=== PATIENT | female | born 2005 | race Caucasian/White ===

== ENCOUNTER 2024-07-30 23:52 | Emergency (ER) | payer OTHER ==
[2024-07-31] MEDS ORDERED: MORPHINE 4 MG/ML SYR ONE (00:33)
[2024-07-31] MEDS ORDERED: METHYLPREDNISOLONE 125 MG INJ ONE (00:33)
[2024-07-31] MEDS ORDERED: ONDANSETRON 4 MG/2 ML VIAL ONE (00:33)
[2024-07-31] MEDS ORDERED: KETOROLAC 30 MG/ML INJ ONE (00:33)
[2024-07-31] MEDS ORDERED: NA CHLORIDE 0.9% 1,000 ML ONE (00:34)
[2024-07-31 01:00] LABS: Absolute Eosinophils 0.1 K/uL (0-0.5); Absolute Lymphocytes (CBC) 2.6 K/uL (0.7-4.9); Absolute Monocytes 0.6 K/uL (0.1-1.3); Absolute Neutrophil 5.8 K/uL (1.8-8.0); Basophils % 0.4 % (0-1.3); Eosinophils % 1.1 % (0-4.4); Hematocrit 39.6 % (36.0-45.0); Hemoglobin 13.1 g/dL (12.0-15.0); Lymphocytes % 28.4 % (15.3-44.8); MCH 29.2 pg (27.0-35.0); MCHC 33.2 g/dL (32.0-36.0); MPV 8.3 fL (7.6-11.3); Monocytes % 6.4 % (3.3-12.3); Neutrophils % 63.7 % (41.7-73.7); Platelets 288 thou/uL (152-406); RBC Red Blood Cell Count 4.51 M/uL (3.86-4.86); Red Cell Distribution Width 13.9 % (12.1-15.2)
[2024-07-31 01:13] LABS: ALT/SGPT 17 U/L (13-56); AST/SGOT 11 U/L (15-37); Albumin 3.7 g/dL (3.4-5.0); Alkaline Phosphatase 71 U/L (45-117); Anion Gap 9.1 mEq/L (5.0-15.0); BUN Blood Urea Nitrogen 13 mg/dL (7-18); Bicarbonate 24 mEq/L (21-32); Globulin 3.6 g/dL (2.3-3.5); Glomerular Filtration Rate 108 ml/min (=/>90); Glucose Level 126 mg/dL (74-106); Magnesium 2.2 mg/dL (1.6-2.4); NT PRO-BNP 16 pg/mL (<125); Potassium 3.1 mEq/L (3.5-5.1); Protein, Total 7.3 g/dL (6.4-8.2); Sodium Level 139 mEq/L (136-145)
[2024-07-31 01:29] LABS: Bilirubin Direct < 0.2 mg/dL (0-0.2); Bilirubin Total < 0.2 mg/dL (0.2-1.0); Troponin High Sensitivity < 3.0 pg/mL (<58.9)
[2024-07-31 02:15] LABS: Specific Gravity 1.018 (1.005-1.030)
[2024-07-31 02:32] LABS: HCG, Quantitative < 1 mIU/mL (1-3)
--- NOTE | 2024-07-31 04:29 | RAD REPORT ---
CLINICAL HISTORY: Chest pain after a cough. COMPARISON: XR Chest 07/31/2024. TECHNIQUE: CT CHEST ABDOMEN PELVIS WITH IV CONTRAST on 07/31/2024 12:16 AM ACADEMIC AFFAIRS VICE PRESIDENT. MIPS reconstructions we re generated. This exam was performed according to our departmental dose-optimization program, which includes autom ated exposure control, adjustment of the mA and/or kV according to patient size and/or use of iterative reconstruction technique. FINDINGS: Vascular: Thoracic aorta is normal in course and caliber without aneurysm or dissection. Pulmonary ar teries are adequately opacified without acute or chronic filling defects. Abdominal aorta is normal in course and caliber without aneurysm. Pelvic arteries are patent without aneurysm or occlusion. Chest: The heart is normal in size. There is no pericardial effusion. Intrathoracic lymph nodes are n ot enlarged. There is no pleural effusion, pleural thickening or pneumothorax. Central airways are patent. Lungs a re clear with no consolidation, mass or interstitial lung disease. Abdomen: The liver is normal in appearance. There is no biliary dilatation. Gallbladder is decompress ed. The pancreas and spleen are normal in appearance. The adrenal glands and kidneys are unremarkable. There is no free air. There is no retroperitoneal adenopathy. Pelvis: There is no bowel obstruction. Urinary bladder is unremarkable. There is no free fluid. Uteru s is normal in size. Appendix is normal. Skeleton: There are no acute osseous findings. No suspicious bony lesions. IMPRESSION: No aortic dissection or aneurysm. No pulmonary embolus. No pneumonia. No acute inflammatory process in the abdomen or pelvis. Electronically signed by: Kranthi Barclay MD 07/31/2024 04:25 AM ACADEMIC AFFAIRS VICE PRESIDENT RP Due to temporary technical issues with the PACS/[employer] reporting system, reports are being wilfredo d by the in-house radiologist without review as a courtesy to ensure prompt reporting the interpreting radiologist is fully responsible for the content of the report. Transcribed Date/Time: 07/31/2024 4:28 AM
--- NOTE | 2024-07-31 04:43 | ER ---
Nurse's Notes [facility] Name: Melinda Murrell Age: 18 yrs Sex: Female : 2005 Arrival Date: 07/30/2024 Time: 23:52 Bed 7 Private MD: Diagnosis: Cough;Acute bronchitis, unspecified;Pleuritic chest pain, Mild persistent asthma with acute exacerbation. Presentation: 07/31 00:06 Chief complaint: Patient states: PT STATES SHE HAD A COUGHING SPELL APPROX 1 HR AGO AND br2 FELT A "POP" TO RIGHT CHEST WALL. C/O PAIN TO THAT AREA 12/06. Coronavirus screen: Client denies travel out of the [place] in the last 14 days. Ebola Screen: Patient denies exposure to infectious person. Patient denies travel to an Ebola-affected area in the 21 days before illness onset. Initial Sepsis Screen: Does the patient meet any 2 criteria? No. Patient's initial sepsis screen is negative. Does the patient have a suspected source of infection? No. Patient's initial sepsis screen is negative. Risk Assessment: Do you want to hurt yourself or someone else? Patient reports no desire to harm self or others. Onset of symptoms was July 30, 2024 at 23:00. 00:06 Method Of Arrival: Ambulatory br2 00:06 Acuity: TYLER 3 br2 Historical: - Allergies: 00:08 PENICILLINS; br2 - PMHx: 00:08 Asthma; br2 - Immunization history:: Adult Immunizations up to date. - Infectious Disease History:: Denies. - Social history:: Smoking status: Patient/guardian denies using tobacco, Patient uses alcohol, occasionally. - Family history:: not pertinent. Screenin:20 [facility] ED Fall Risk Assessment (Adult) History of falling in the last 3 months, al5 including since admission No falls in past 3 months (0 pts) Confusion or Disorientation No (0 pts) Intoxicated or Sedated No (0 pts) Impaired Gait No (0 pts) Mobility Assist Device Used No (0 pt) Altered Elimination No (0 pt) Score/Fall Risk Level 0 - 2 = Low Risk Oriented to surroundings, Maintained a safe environment, Hourly rounding (assess needs \\T\\ fall precautionary measures) done. Abuse screen: Denies threats or abuse. Denies injuries from another. Nutritional screening: No deficits noted. Tuberculosis screening: No symptoms or risk factors identified. Assessment: 00:20 General: Appears in no apparent distress. comfortable, Behavior is calm, cooperative. al5 Pain: Complains of pain in right seventh rib, right eighth rib, right ninth rib and right tenth rib Pain does not radiate. Pain began 1 hour ago. Neuro: Level of Consciousness is awake, alert, obeys commands, Oriented to person, place, time, situation. Cardiovascular: Capillary refill < 3 seconds Patient's skin is warm and dry. Respiratory: Airway is patent Respiratory effort is even, unlabored, Respiratory pattern is regular, symmetrical. GI: No signs and/or symptoms were reported involving the gastrointestinal system. : No signs and/or symptoms were reported regarding the genitourinary system. EENT: No signs and/or symptoms were reported regarding the EENT system. Derm: Skin is intact, is healthy with good turgor, Skin is pink, warm \\T\\ dry. normal. Musculoskeletal: No signs and/or symptoms reported regarding the musculoskeletal system. 02:54 Reassessment: Patient and/or family updated on plan of care and expected duration. Pain br2 level reassessed. Patient is alert, oriented x 3, equal unlabored respirations, skin warm/dry/pink. Patient states feeling better. Patient states symptoms have improved. Vital Signs: 00:00 BP 112 / 101; Pulse 113; Resp 19; Pulse Ox 99% on R/A; al5 00:06 BP 130 / 88; Pulse 102; Resp 18 S; Temp 97.5; Pulse Ox 100% on R/A; Weight 81.65 kg; br2 Height 5 ft. 7 in. ; Pain 5/10; 00:23 BP 115 / 74; Pulse 111; Resp 18; Pulse Ox 98% on R/A; al5 00:30 BP 111 / 79; Pulse 106; Resp 18; Pulse Ox 99% on R/A; al5 00:45 BP 112 / 78; Pulse 96; Resp 18; Pulse Ox 97% on R/A; al5 01:00 BP 107 / 80; Pulse 90; Resp 17; Pulse Ox 98% on R/A; al5 01:15 BP 111 / 70; Pulse 90; Resp 16; Pulse Ox 98% on R/A; al5 02:20 BP 120 / 77; Pulse 97; Resp 20; Pulse Ox 99% ; jj7 02:53 BP 106 / 75; Pulse 79; Resp 18; Pulse Ox 99% ; Pain 3/10; br2 04:00 BP 108 / 70; Pulse 92; Resp 20; Pulse Ox 98% ; jj7 05:02 BP 127 / 82; Pulse 80; Resp 18 S; Pulse Ox 99% on R/A; br2 00:06 Body Mass Index 28.19 (81.65 kg, 170.18 cm) br2 00:06 Pain Scale: Adult br2 02:53 Pain Scale: Adult br2 [place] Coma Score: 03:49 Eye Response: spontaneous(4). Motor Response: obeys commands(6). Verbal Response: sp4 oriented(5). Total: 15. ED Course: 07/30 23:56 Patient arrived in ED. jj6 23:57 Andres Victor MD is Attending Physician. sp4 23:59 Jamilah Jolly RN is Primary Nurse. al5 07/31 00:08 Triage completed. br2 00:20 Patient has correct armband on for positive identification. Bed in low position. Call al5 light in reach. Side rails up X 1. Provided Education on: plan of care. Client placed on continuous cardiac and pulse oximetry monitoring. NIBP monitoring applied. 00:30 No provider procedures requiring assistance completed. Inserted saline lock: 22 gauge al5 in right forearm, using aseptic technique. Blood collected. Flushed with 10 mL NS. Patient maintains SpO2 saturation greater than 95% on room air. 00:35 EKG done, by ED staff, reviewed by Andres Victor MD. sa1 00:47 XRAY Chest (1 view) In Process Unspecified. EDMS 02:43 CT Chest, Abdomen, Pelvis - W/Contrast In Process Unspecified. EDMS 05:03 IV discontinued, intact, bleeding controlled, No redness/swelling at site. Pressure br2 dressing applied. Administered Medications: 00:46 Drug: MethylPrednisoLONE IVP 125 mg IVP once Route: IVP; Site: right antecubital; al5 02:00 Follow up: Response: No adverse reaction br2 00:47 Not Given (Patient Refused): morphineor iv 4 mg IVP once over 4 mins al5 00:47 Not Given (Patient Refused): [id number] mg IVP once al5 00:47 Not Given (Patient Refused): ondansetron 4 mg IVP once; over 2 minutes al5 00:47 Drug: NS 0.9% IV 1000 ml IV at 1 bolus Per protocol; to be given as a bolus over 60 al5 minutes Route: IV; Rate: 1 bolus; Site: right antecubital; 02:00 Follow up: Response: No adverse reaction; IV Status: Completed infusion; IV Intake: br2 1000ml Medication: 00:20 VIS not applicable for this client. al5 Intake: 02:00 IV: 1000ml; Total: 1000ml. br2 Outcome: 04:42 Discharge ordered by . sp4 05:02 Discharged to home ambulatory, br2 05:02 Condition: good 05:02 Discharge instructions given to patient, Instructed on discharge instructions, follow up and referral plans. Demonstrated understanding of instructions, follow-up care, medications, Prescriptions given X 4, 05:05 Patient left the ED. br2 Signatures: Dispatcher [employer] EDMS Siri Liu jj6 Patricia Augustine, RN RN jj7 Andres Victor MD MD sp4 Jamilah Jolly RN RN al5 Sultan annita Packer1 Marline Prasad, RN RN br2 Corrections: (The following items were deleted from the chart) 01:44 00:15 Reassessment: REPORT GIVEN TO SHERIE RN AT jj7 al5
--- NOTE | 2024-07-31 04:43 | EDPHYS ---
Physician Documentation [facility] Name: Melinda Murrell Age: 18 yrs Sex: Female : 2005 Arrival Date: 07/30/2024 Time: 23:52 Bed 7 Private MD: ED Physician Andres Victor HPI: 07/30 23:57 This 18 yrs old Female presents to ER via Unassigned with complaints of Chest sp4 Pain, Asthma Exacerbation. 07/31 03:49 18-year-old female with history of pneumomediastinum at the age of 2 presents with sp4 acute forceful cough associated with epigastric right lower chest pain as well. History of asthma.. Historical: - Allergies: 00:08 PENICILLINS; br2 - PMHx: 00:08 Asthma; br2 - Immunization history:: Adult Immunizations up to date. - Infectious Disease History:: Denies. - Social history:: Smoking status: Patient/guardian denies using tobacco, Patient uses alcohol, occasionally. - Family history:: not pertinent. ROS: 03:49 Constitutional: Negative for fever, chills, and weight loss, positive chest pain and sp4 epigastric pain 03:49 All other systems are negative, Exam: 03:49 Constitutional: This is a well developed, well nourished patient who is awake, alert, sp4 and in no acute distress. Head/Face: Normocephalic, atraumatic. Eyes: Pupils equal round and reactive to light, extra-ocular motions intact. Lids and lashes normal. Conjunctiva and sclera are not injected. Cornea within normal limits. Periorbital areas with no swelling, redness, or edema. ENT: Nares patent. No nasal discharge, no septal abnormalities noted. Tympanic membranes are normal and external auditory canals are clear. Oropharynx with no redness, swelling, or masses, exudates, or evidence of obstruction, uvula midline. Mucous membranes moist. Neck: Trachea midline, no thyromegaly or masses palpated, and no cervical lymphadenopathy. Supple, full range of motion without nuchal rigidity, or vertebral point tenderness. Chest/axilla: Normal chest wall appearance and motion. Nontender with no deformity. No lesions are appreciated. Cardiovascular: Regular rate and rhythm with a normal S1 and S2. No gallops, murmurs, or rubs. Normal PMI, no JVD. No pulse deficits. Respiratory: Lungs have equal breath sounds bilaterally, clear to auscultation and percussion. No rales, rhonchi or wheezes noted. No increased work of breathing, no retractions or nasal flaring. Abdomen/GI: Soft, with normal bowel sounds. No distension or tympany. No guarding or rebound. No evidence of tenderness throughout. Back: No spinal tenderness. No costovertebral tenderness. Skin: Warm, dry with normal turgor. Normal color with no rashes, no lesions, and no evidence of cellulitis. MS/ Extremity: Pulses equal, no cyanosis. Neurovascular intact. Full, normal range of motion. Neuro: Awake and alert, GCS 15, oriented to person, place, time, and situation. Cranial nerves II-XII grossly intact. Motor strength 5/5 in all extremities. Sensory grossly intact. Psych: Awake, alert, with orientation to person, place and time. Behavior, mood, and affect are within normal limits 03:56 ECG was reviewed by the Attending Physician. EKG at 0028 sinus tachycardia rate 103 sp4 Vital Signs: 00:00 BP 112 / 101; Pulse 113; Resp 19; Pulse Ox 99% on R/A; al5 00:06 BP 130 / 88; Pulse 102; Resp 18 S; Temp 97.5; Pulse Ox 100% on R/A; Weight 81.65 kg; br2 Height 5 ft. 7 in. ; Pain 5/10; 00:23 BP 115 / 74; Pulse 111; Resp 18; Pulse Ox 98% on R/A; al5 00:30 BP 111 / 79; Pulse 106; Resp 18; Pulse Ox 99% on R/A; al5 00:45 BP 112 / 78; Pulse 96; Resp 18; Pulse Ox 97% on R/A; al5 01:00 BP 107 / 80; Pulse 90; Resp 17; Pulse Ox 98% on R/A; al5 01:15 BP 111 / 70; Pulse 90; Resp 16; Pulse Ox 98% on R/A; al5 02:20 BP 120 / 77; Pulse 97; Resp 20; Pulse Ox 99% ; jj7 02:53 BP 106 / 75; Pulse 79; Resp 18; Pulse Ox 99% ; Pain 3/10; br2 04:00 BP 108 / 70; Pulse 92; Resp 20; Pulse Ox 98% ; jj7 05:02 BP 127 / 82; Pulse 80; Resp 18 S; Pulse Ox 99% on R/A; br2 00:06 Body Mass Index 28.19 (81.65 kg, 170.18 cm) br2 00:06 Pain Scale: Adult br2 02:53 Pain Scale: Adult br2 [place] Coma Score: 03:49 Eye Response: spontaneous(4). Motor Response: obeys commands(6). Verbal Response: sp4 oriented(5). Total: 15. MDM: 00:16 Medical Screening Exam initiated sp4 02:04 ED course: CLINICAL HISTORY: CHEST PAIN COMPARISON: None. TECHNIQUE: XR CHEST 1 VIEW sp4 07/31/2024 12:04 AM HALAL MEAT PACKER FINDINGS: Cardiac silhouette is normal in size. Lungs are clear without consolidation, atelectasis, mass or edema. There is no pleural effusion. There is no pneumothorax. There are no acute osseous findings. IMPRESSION: Clear lungs. Electronically signed by: Kranthi Barclay MD 07/31/2024 . 04:36 ED course: CLINICAL HISTORY: Chest pain after a cough. COMPARISON: XR Chest 07/31/2024. sp4 TECHNIQUE: CT CHESTABDOMEN PELVIS WITH IV CONTRAST on 07/31/2024 12:16 AM HALAL MEAT PACKER. MIPS reconstructions were generated. This exam was performed according to our departmental dose-optimization program, which includes automated exposure control, adjustment of the mA and/or kV according to patient size and/or use of iterative reconstruction technique. FINDINGS: Vascular: Thoracic aorta is normal in course and caliber without aneurysm or dissection. Pulmonary arteries are adequately opacified without acute or chronic filling defects. Abdominal aorta is normal in course and caliber without aneurysm. Pelvic arteries are patent without aneurysm or occlusion. Chest: The heart is normal in size. There is no pericardial effusion. Intrathoracic lymph nodes are not enlarged. There is no pleural effusion, pleural thickening or pneumothorax. Central airways are patent. Lungs are clear with no consolidation, mass or interstitial lung disease. Abdomen: The liver is normal in appearance. There is no biliary dilatation. Gallbladder is decompressed. The pancreas and spleen are normal in appearance. The adrenal glands and kidneys are unremarkable. There is no free air. There is no retroperitoneal adenopathy. Pelvis: There is no bowel obstruction. Urinary bladder is unremarkable. There is no free fluid. Uterus is normal in size. Appendix is normal. Skeleton: There are no acute osseous findings. No suspicious bony lesions. IMPRESSION: No aortic dissection or aneurysm. No pulmonary embolus. No pneumonia. No acute inflammatory process in the abdomen or pelvis. Electronically signed by: Kranthi Barclay MD 07/31/2024 04:25 AM HALAL MEAT PACKER . 04:39 Differential diagnosis: acute pericarditis, anxiety, chest wall pain, cholecystitis, sp4 Cholelithiasis. HEART Score: History: Slightly Suspicious (0), ECG: Normal (0), Age: < or = 45 years (0), Risk Factors: No Risk Factors Known (0), Troponin: < or = 1 x Normal Limit (0), Total Score = 0. Data reviewed: vital signs, nurses notes, old medical records, lab test result(s), EKG, radiologic studies, CT scan, plain films. ED course: CT is unremarkable. Will prescribe patient some albuterol prednisone and dextromethorphan for cough. Otherwise stable for discharge home. No signs of pneumomediastinum.. 07/31 00:04 Order name: Basic Metabolic Panel; Complete Time: 02:53 sp4 07/31 00:04 Order name: CBC with Diff; Complete Time: 02:53 sp4 07/31 00:04 Order name: LFT's; Complete Time: 02:53 sp4 07/31 00:04 Order name: Magnesium; Complete Time: 02:53 sp4 07/31 00:04 Order name: NT PRO-BNP; Complete Time: 02:53 sp4 07/31 00:04 Order name: Troponin HS; Complete Time: 02:53 sp4 07/31 01:51 Order name: PREGU; Complete Time: 02:53 jj7 07/31 02:13 Order name: HCG, Quantitative; Complete Time: 02:53 EDMS 07/31 00:04 Order name: XRAY Chest (1 view) 4 07/31 00:16 Order name: CT Chest, Abdomen, Pelvis - W/Contrast 4 07/31 00:04 Order name: EKG; Complete Time: 00:04 sp4 07/31 00:04 Order name: Cardiac monitoring; Complete Time: 00:27 sp4 07/31 00:04 Order name: EKG - Nurse/Tech; Complete Time: 00: sp4 07/31 00:04 Order name: IV Saline Lock; Complete Time: sp4 07/31 00:04 Order name: Labs collected and sent; Complete Time: sp4 07/31 00:04 Order name: O2 Per Protocol; Complete Time: sp4 07/31 00:04 Order name: O2 Sat Monitoring; Complete Time: sp4 EC: Rate is 103 beats/min. Rhythm is regular, Sinus tachycardia. QRS [place] is Normal. [place] sp4 interval is normal. QRS interval is normal. QT interval is normal. No Q waves. T waves are Normal. No ST changes noted. Clinical impression: No evidence of ischemia. Interpreted by me. Reviewed by me. Administered Medications: 00:46 Drug: MethylPrednisoLONE IVP 125 mg IVP once Route: IVP; Site: right antecubital; al5 02:00 Follow up: Response: No adverse reaction br2 00:47 Not Given (Patient Refused): morphineor iv 4 mg IVP once over 4 mins al5 00:47 Not Given (Patient Refused): [id number] mg IVP once al5 00:47 Not Given (Patient Refused): ondansetron 4 mg IVP once; over 2 minutes al5 00:47 Drug: NS 0.9% IV 1000 ml IV at 1 bolus Per protocol; to be given as a bolus over 60 al5 minutes Route: IV; Rate: 1 bolus; Site: right antecubital; 02:00 Follow up: Response: No adverse reaction; IV Status: Completed infusion; IV Intake: br2 1000ml Disposition Summary: 07/31/24 04:42 Discharge Ordered Notes: Location: Home sp4 Problem: new sp4 Symptoms: have improved sp4 Condition: Stable sp4 Diagnosis - Cough sp4 - Acute bronchitis, unspecified sp4 - Pleuritic chest pain, Mild persistent asthma with acute exacerbation. sp4 Followup: sp4 - With: Private Physician - When: 7 - 10 days - Reason: Recheck today's complaints Discharge Instructions: - Discharge Summary Sheet sp4 - Acute Bronchitis, Adult sp4 Forms: - Work release form rv1 - Patient Portal Instructions sp4 Prescriptions: - Dispense One Nebulizer with Adult Mask - 0 Use with Albuterol Q 4 hours PRN wheezing; ; Refills: 0, Product Selection sp4 Permitted - dextromethorphan-guaifenesin 20-400 mg Oral tablet - take 1 tablet ORAL route every 6 hours PRN cough; 40 tablet; Refills: 0, sp4 Product Selection Permitted - Albuterol Sulfate 2.5 mg /3 mL (0.083 %) Inhalation Solution for Nebulization - inhale 1 unit NEBULIZATION route every 4 hours As needed Dispense 50 vials or sp4 Two boxes, Use Nebulized Q 4 hours PRN wheezing or cough; 50 unit; Refills: 0, Product Selection Permitted - Prednisone 20 mg Oral Tablet - take 2 tablets ORAL route once daily for 5 days; 10 tablet; Refills: 0, Product sp4 Selection Permitted Signatures: Dispatcher [employer] EDMS Andres Victor MD MD sp4 Jamilah Jolly RN RN al5 Marline Prasad RN RN br2 Corrections: (The following items were deleted from the chart) 00:04 00:04 BASIC METABOLIC PANEL+C.LAB.BRZ ordered. EDMS EDMS 00:04 00:04 CBC+H.LAB.BRZ ordered. EDMS EDMS 00:04 00:04 HEPATIC FUNCTION+C.LAB.BRZ ordered. EDMS EDMS 00:04 00:04 MAGNESIUM+C.LAB.BRZ ordered. EDMS EDMS 00:04 00:04 PROBNP+C.LAB.BRZ ordered. EDMS EDMS 00:04 00:04 Troponin High Sensitivity+C.LAB.BRZ ordered. EDMS EDMS 00:17 00:17 Chest Abdomen Pelvis W Con+CT.RAD.BRZ ordered. EDMS EDMS 02:13 01:51 QUANTITATIVE HCG+C.LAB.BRZ ordered. EDMS EDMS
[2024-07-31 05:32] VITALS: TEMP 97.5
[2024-07-31 05:47] VITALS: BP 127/82; O2SAT 99
--- NOTE | 2024-07-31 06:22 | RAD REPORT ---
CLINICAL HISTORY: CHEST PAIN COMPARISON: None. TECHNIQUE: XR CHEST 1 VIEW 07/31/2024 12:04 AM EAP SPECIALIST FINDINGS: Cardiac silhouette is normal in size. Lungs are clear without consolidation, atelectasis, mass or ana ma. There is no pleural effusion. There is no pneumothorax. There are no acute osseous findings. IMPRESSION: Clear lungs. Electronically signed by: Kranthi Barclay MD 07/31/2024 01:49 AM EAP SPECIALIST RP Due to temporary technical issues with the PACS/[employer] reporting system, reports are being wilfredo d by the in-house radiologist without review as a courtesy to ensure prompt reporting the interpreting radiologist is fully responsible for the content of the report. Transcribed Date/Time: 07/31/2024 6:21 AM
--- NOTE | 2024-08-01 12:44 | EKG ---
Test Date: 2024-07-31 Test Time: 00:28:41 Calendar Control Clerk Blood Bank: MEASUREMENT RESULTS: Intervals: Rate: 103 IA: 140 QRSD: 86 QT: 354 QTc: 463 [place]: P: 52 IA: 140 QRS: 51 T: 40 INTERPRETIVE STATEMENTS: Sinus tachycardia Otherwise normal ECG No previous ECG available for comparison Electronically Signed On 08-01-24 12:41:16 [employer] by Kenton Hidalgo
== END 2024-07-31 05:05 | disposition home or self-care (01) ==
LOC: ER 23:52
DX: R07.81 Pleurodynia (principal); J45.31 Mild persistent asthma with (acute) exacerbation; J20.9 Acute bronchitis, unspecified; R05.9 Cough, unspecified; Z88.0 Allergy status to penicillin
CPT/HCPCS: 96361; 93005; 85025; 80048; 36415; 83735; 81025; 80076; 84702; 84484; 83880; 71260; 74177; 71045; 96374; 99284; Q9967; J2919; J7030; J2405